=== PATIENT | female | born 1990 | race Caucasian/White ===

== ENCOUNTER 2017-09-03 10:47 | Emergency (ER) | payer BC, OTHER ==
[2017-09-03 11:20] VITALS: BP 108/57
[2017-09-03] MEDS ORDERED: Ibuprofen TAB* 600 MG PO ONE (11:22)
--- NOTE | 2017-09-03 12:19 | RAD ---
INDICATION: Left fifth finger injury. TECHNIQUE: 3 views of the left fifth finger were obtained. FINDINGS: There is soft tissue swelling and soft tissue defect adjacent to the distal phalanx. The bones are in normal alignment. No fracture is seen. Joint spaces appear maintained. IMPRESSION: SOFT TISSUE INJURY, NO FRACTURE IS SEEN.
[2017-09-03] MEDS ORDERED: Tetan/Diph/Pertus SYR(Tdap)* 0.5 ML SYR(BOOSTRIX) use SYR IM ONE (12:42)
--- NOTE | 2017-09-03 12:42 | UC ---
Laceration HPI - HPI Summary HPI Summary: Right handed Pt presents with laceration to left distal pinky finger about 1 hour prior to arrival. She tells me that she was cutting food with a kitchen knife when it slipped and sliced her left pinky finger. She wrapped it and came to urgent care. Unsure when last tdap was. - History Of Current Complaint Hx Obtained From: Patient Hx Last Menstrual Period: 08/20/17 Laceration Location: Finger Mechanism Of Injury: Sharp Trauma Onset/Duration: Sudden Onset Severity: Moderate Pain Intensity: 7 Pain Scale Used: 0-10 Numeric <Shaheen Rajan - Last Filed: 09/03/17 14:25> <Radhames Fernandez - Last Filed: 09/03/17 18:07> - History Of Current Complaint Chief Complaint: UCLaceration Stated Complaint: FINGER LACERATION Time Seen by Provider: 09/03/17 12:41 - Allergies/Home Medications Allergies/Adverse Reactions: Allergies Allergy/AdvReac Type Severity Reaction Status Date / Time No Known Allergies Allergy Verified 05/06/16 08:26 PMH/Surg Hx/FS Hx/Imm Hx Previously Healthy: Yes - Surgical History Surgical History: None - Family History Known Family History: Positive: Cardiac Disease - grandmother, Renal Disease Negative: Diabetes - Social History Lives: With Family Alcohol Use: Occasionally Substance Use Type: Marijuana Substance Use Comment - Amount & Last Used: weekly Smoking Status (MU): Former Smoker <Shaheen Rajan - Last Filed: 09/03/17 14:25> Review of Systems Constitutional: Negative Skin: Other - Laceration to left pinky finger Neurovascular: Decreased Sensation - Left distal pinky All Other Systems Reviewed And Are Negative: Yes <Shaheen Rajan - Last Filed: 09/03/17 14:25> Physical Exam Triage Information Reviewed: Yes Appearance: Well-Nourished, Pain Distress Vital Signs: Initial Vital Signs Temp 98.8 F 09/03/17 11:14 Pulse 89 09/03/17 11:14 Resp 18 09/03/17 11:14 BP 108/57 09/03/17 11:14 Pulse Ox 100 09/03/17 11:14 Vital Signs Reviewed: Yes Respiratory: Positive: Chest non-tender, Lungs clear, Normal breath sounds Cardiovascular: Positive: RRR, Pulses Normal. Negative: Brisk Capillary Refill - Distal 2mm Left pinky finger above site of laceration is pale and without cap refill. Neurological: Positive: Other: - No sensation distal 2mm of left pinky finger above site of laceration Psychological: Positive: Age Appropriate Behavior Skin: Positive: Other - There is a ~7mm laceration to the left distal pinky finger above the nail. Laceration is about 80% avulsed in a horizontal fashion. The distal remaining skin structure is pale and without cap refill. Bleeding was able to be stopped with direct pressure. No foreign bodies appreciated <Shaheen Rajan - Last Filed: 09/03/17 14:25> Vital Signs: Initial Vital Signs Temp 98.8 F 09/03/17 11:14 Pulse 89 09/03/17 11:14 Resp 18 09/03/17 11:14 BP 108/57 09/03/17 11:14 Pulse Ox 100 09/03/17 11:14 <Radhames Fernandez - Last Filed: 09/03/17 18:07> Laceration Course/Dx - Course/Dx Course Of Treatment: IMPRESSION: SOFT TISSUE INJURY, NO FRACTURE IS SEEN. Tdap updated today. A time out was performed, witnessed, and signed. The area was pressure irrigated with 400mL sterile saline. 4mL of 2% lidocaine without epi was administered to digital block the pinky finger and good anesthetization was achieved. An Iodine swab was used to cleanse the area. The distal skin was ~80- 90% avulsed and without cap refill. I asked Dr. Fernandez to examine the patient. After his exam, we agreed that removal of the nearly avulsed skin and placement of gelfoam with tube dressing was the best course of action. Pt was agreeable to this plan. Using iris scissor and adsons, the nearly avulsed distal skin segment was pulled and excised from the finger. Gelfoam and tube gauze was placed. Pt tolerated procedure well. I will have her follow up with plastic surgery at their next available appointment for wound check and potential further treatment. - Differential Dx - Laceration/Wound Differental Diagnoses: Avulsion, Fracture, Laceration Provider Diagnoses: Laceration to left distal pinky finger <Shaheen Rajan - Last Filed: 09/03/17 14:25> Discharge <Shaheen Rajan - Last Filed: 09/03/17 14:25> <RebeccaRadhames Megan - Last Filed: 09/03/17 18:07> - Discharge Plan Condition: Stable Disposition: HOME Prescriptions: Cephalexin CAP* [Keflex CAP*] 500 mg PO BID #20 cap Patient Education Materials: Finger Laceration (ED) Referrals: Pablo Toth MD [Medical Doctor] - As Soon As Possible Perico Hamm NP [Primary Care Provider] - Additional Instructions: If you develop a fever, shortness of breath, chest pain, new or worsening symptoms - please call your PCP or go to the ED. 1) Please call and schedule a follow up with Plastic Surgery below 2) Keep bandage clean, dry, and intact for the next [address] remove and place telfa dressing after that. 3) If you develop fever, colored or thick drainage, increased pain/swelling, or red streaking - please go to the ED.
[2017-09-03] MEDS ORDERED: Lidocaine 2% PF * 5 ML VIAL INJ ONE (12:48)
[2017-09-03] MEDS ORDERED: Gelfoam 100 COMPRESSED* SPONGE TOPICAL ONE (13:44)
[2017-09-03] MEDS ORDERED: Gelfoam 12-7 ADSORBABL SPONGE* 1 EA SPONGE ONE (13:47)
--- NOTE | 2017-09-03 18:48 | UC ---
- Progress Note Progress Note: I examined patient laceration of tuft LIF was pale/non viable no bone exposed was being held on by only a thread pt advised that this needs careful follow up I told her that I felt it would heal fine but there was a chance it may not and may require a skin graft JLDarling Course/Dx - Course Course Of Treatment: IMPRESSION: SOFT TISSUE INJURY, NO FRACTURE IS SEEN. Tdap updated today. A time out was performed, witnessed, and signed. The area was pressure irrigated with 400mL sterile saline. 4mL of 2% lidocaine without epi was administered to digital block the pinky finger and good anesthetization was achieved. An Iodine swab was used to cleanse the area. The distal skin was ~80- 90% avulsed and without cap refill. I asked Dr. Fernandez to examine the patient. After his exam, we agreed that removal of the nearly avulsed skin and placement of gelfoam with tube dressing was the best course of action. Pt was agreeable to this plan. Using iris scissor and adsons, the nearly avulsed distal skin segment was pulled and excised from the finger. Gelfoam and tube gauze was placed. Pt tolerated procedure well. I will have her follow up with plastic surgery at their next available appointment for wound check and potential further treatment.
== END 2017-09-03 14:00 | disposition home or self-care (01) ==
LOC: UCEAST 10:47
DX: S61.217A Laceration without foreign body of left little finger without damage to nail, initial encounter (principal); W26.0XXA Contact with knife, initial encounter; Y93.G1 Activity, food preparation and clean up; Y92.9 Unspecified place or not applicable; Z23 Encounter for immunization; F12.90 Cannabis use, unspecified, uncomplicated; Z87.891 Personal history of nicotine dependence
CPT/HCPCS: 73140; 90715; 99212; A9270-GY; G0463